=== PATIENT | male | born 1980 | race Caucasian/White ===

== ENCOUNTER 2016-08-06 11:18 | Inpatient (IN) | payer OTHER ==
[2016-08-06 12:09] VITALS: BMI 24.0
--- NOTE | 2016-08-06 13:12 | HP ---
COWS - Scale Resting Pulse: 0= [place] 80 or Below Sweatin=Flushed/Facial Moisture Restless Observation: 3= Extraneous Movement Pupil Size: 2= Moderately Dilated Bone or Joint Aches: 2= Severe Diffuse Aches Runny Nose/ Eye Tearin= Runny Nose/Eyes GI Upset > 30mins: 3= Vomiting/Diarrhea Tremor Observation: 2= Slight Tremor Visible Yawning Observation: 2= >3x During Session Anxiety or Irritability: 2=Irritable/Anxious Goose Flesh Skin: 0=Smooth Skin COWS Score: 20 Admission ROS BHS - HPI Chief Complaint: I NEED HELP TO STOP USING HEROIN,COCAINE AND CANNABIS History of Present Illness: THIS 35 YEARS OLD MALE WITH HEROIN,COCAINE,MARIJUANA DEPENDENCE,ALCOHOL DEPENDENCE,WITHDRAWAL SYMPTOM,LAST DETOX 06/22 [facility] NOT COMPLETED DEPRESSION NICOTINE DEPENDENCE SYNCOPE LAST DETOX 06/22 [facility] ASTHMA NO SIGNIFICANT PERIOD OF SOBRIETY Exam Limitations: No Limitations - Ebola screening Have you traveled outside of the country in the last 21 days: No Have you been sick,other than usual withdrawal symptoms: No - Review of Systems Constitutional: Chills, Diaphoresis, Loss of Appetite, Malaise, Night Sweats, Changes in sleep, Weakness, Unintentional Wgt. Loss EENT: reports: Tearing, Nose Congestion Respiratory: reports: No Symptoms reported Cardiac: reports: Palpitations GI: reports: Diarrhea, Nausea, Vomiting, Abdominal cramping : reports: No Symptoms Reported Musculoskeletal: reports: Back Pain, Joint Pain, Muscle Pain Integumentary: reports: Dryness Neuro: reports: Headache, Tremors Endocrine: reports: No Symptoms Reported Hematology: reports: No Symptoms Reported Psychiatric: reports: Judgement Intact, Mood/Affect Appropiate, Orientated x3, Depressed Patient History - Patient Medical History Hx Anemia: No Hx Asthma: Yes (ON ALBUTEROL INHALER) Hx Chronic Obstructive Pulmonary Disease (COPD): No Hx Cancer: No Hx Cardiac Disorders: No Hx Congestive Heart Failure: No Hx Hypertension: No Hx Hypercholesterolemia: No Hx Pacemaker: No HX Cerebrovascular Accident: No Hx Seizures: No Hx Dementia: No Hx Diabetes: No Hx Gastrointestinal Disorders: No Hx Liver Disease: No Hx Genitourinary Disorders: No Hx Sexually Transmitted Disorders: No Hx Thyroid Disease: No Hx Human Immunodeficiency Virus (HIV): No (LAST 2015) Hx Hepatitis C: No Hx Depression: Yes (NO MED) Hx Suicide Attempt: No Hx Bipolar Disorder: No Hx Schizophrenia: No Other Medical History: NO SUICIDAL,NO HOMICIDAL - Patient Surgical History Past Surgical History: Yes Other Surgical History: REPAIR OF EXTENSOR TENDONS OF RIGHT HAND IN 2006 - PPD History Previous Implant?: Yes Documented Results: Negative w/o proof Implanted On Prior [facility] Admission?: No PPD to be Administered?: Yes - Smoking Cessation Smoking history: Current every day smoker Have you smoked in the past 12 months: Yes Aproximately how many cigarettes per day: 20 Cigars Per Day: 0 Hx Chewing Tobacco Use: No Initiated information on smoking cessation: Yes 'Breaking Loose' booklet given: 08/06/16 - Substance & Tx. History Hx Alcohol Use: Yes Hx Substance Use: Yes Substance Use Type: Alcohol, Cocaine, Heroin, Marijuana Hx Substance Use Treatment: Yes ([facility] 06/22) Family Disease History - Family Disease History Family History: Denies Admission Physical Exam BHS - Vital Signs Vital Signs: Vital Signs - 24 hr 08/06/16 12:02 Temperature 98 F Pulse Rate 58 L Respiratory 20 Rate Blood Pressure 123/65 - Physical General Appearance: Yes: Moderate Distress, Tremorous, Irritable, Sweating, Anxious HEENTM: Yes: Normal ENT Inspection, Normocephalic, Nasal Congestion, Rhinorrhea Respiratory: Yes: Within Normal Limits, Lungs Clear Neck: Yes: Within Normal Limits, Supple, Trachea in good position Breast: Yes: Within Normal Limits Cardiology: Yes: Within Normal Limits, Regular Rhythm, Regular Rate, S1, S2 Abdominal: Yes: Within Normal Limits, Normal Bowel Sounds, Non Tender, Soft Genitourinary: Yes: Within Normal Limits Back: Yes: Muscle Spasm Musculoskeletal: Yes: Back pain, Muscle Pain Extremities: Yes: Tremors 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 NML intact, Fully Oriented, Alert, Motor Strength 5/5 Integumentary: Yes: Dry Lymphatic: Yes: Within Normal Limits - Diagnostic (1) Opioid dependence with withdrawal Current Visit: Yes Status: Acute (2) Cocaine dependence Current Visit: Yes Status: Acute (3) Cannabis dependence Current Visit: Yes Status: Acute (4) Alcohol dependence Current Visit: Yes Status: Acute (5) Nicotine dependence Current Visit: Yes Status: Acute (6) Syncope Current Visit: Yes Status: Acute (7) Weight loss Current Visit: Yes Status: Acute (8) Asthma Current Visit: Yes Status: Acute (9) Low back pain Current Visit: Yes Status: Acute Cleared for Admission [facility] - Detox or Rehab [facility] Level of Care: Medically Managed Detox Regimen/Protocol: Librium [facility] Breath Alcohol Content Breath Alcohol Content: 0 Urine Drug Screen - Results Drug Screen Negative: No Urine Drug Screen Results: THC-Marijuana, DIOGENES-Cocaine, OPI-Opiates, MTD- Methadone
[2016-08-06] MEDS ORDERED: MENTHOL/PHENOL 1 EACH UD MM PRN (13:34)
[2016-08-06] MEDS ORDERED: MAG HYDROX/AL HYDROX/SIMETH 30 ML UNIT-DOSE CUP PO PRN (13:34)
[2016-08-06] MEDS ORDERED: MAGNESIUM HYDROX 2400MG/30ML ORAL SUSPENSION 30 ML CUP PO PRN (13:34)
[2016-08-06] MEDS ORDERED: IBUPROFEN 400 MG TABLET (FP) PO PRN (13:34)
[2016-08-06] MEDS ORDERED: hydrOXYzine PAMOATE 50 MG CAPSULE (FP) PO PRN (13:34)
[2016-08-06] MEDS ORDERED: P-EPHED 60MG/TRIPROLIDI 2.5MG TABLET PO PRN (13:34)
[2016-08-06] MEDS ORDERED: LOPERAMIDE HCL 2 MG CAPSULE PO PRN (13:34)
[2016-08-06] MEDS ORDERED: ACETAMINOPHEN 325 MG TABLET (FP) PO PRN (13:34)
[2016-08-06] MEDS ORDERED: guaiFENesin/D-METHORPHAN HB 10 ML UNIT-DOSE CUPS PO PRN (13:34)
[2016-08-06] MEDS ORDERED: diphenhydrAMINE HCL 50 MG CAPSULE PO PRN (13:34)
[2016-08-06] MEDS ORDERED: MAGNESIUM CITRATE 300 ML BOTTLE PO PRN (13:34)
[2016-08-06] MEDS ORDERED: chlordiazePOXIDE HCL 25 MG CAPSULE PO PRN (13:34)
[2016-08-06] MEDS ORDERED: chlordiazePOXIDE HCL 25 MG CAPSULE PO ONE (13:55)
[2016-08-06] MEDS ORDERED: ALBUTEROL SO4 6.7 GM HFA INHALER IH PRN (14:37)
[2016-08-06] MEDS ORDERED: METHADONE HCL 10 MG TABLET (FOR DETOX USE ONLY) PO ONE ×2 (14:43→23:00)
[2016-08-06] MEDS: diazePAM 5 MG TABLET PO PRN ×2 (14:57→22:27)
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
[2016-08-06] MEDS ORDERED: chlordiazePOXIDE HCL 25 MG CAPSULE PO SCH (17:00)
[2016-08-06 21:42] LABS: URINE APPEARANCE CLEAR; URINE BILIRUBIN NEGATIVE (NEGATIVE); URINE COLOR YELLOW; URINE GLUCOSE (UA) NEGATIVE (NEGATIVE); URINE KETONE NEGATIVE (NEGATIVE); URINE NITRITE NEGATIVE (NEGATIVE); URINE PROTEIN NEGATIVE (NEGATIVE); URINE UROBILINOGEN NEGATIVE E.U./dl (0.2-1.0)
[2016-08-06 21:45] LABS: URINE BLOOD 2+ (NEGATIVE); URINE LEUK ESTERASE TRACE (NEGATIVE)
[2016-08-06 21:49] LABS: URINE BACTERIA RARE /hpf (NONE SEEN); URINE MUCUS MANY; URINE RBC 29 /hpf (0-3); URINE WBC 1 /hpf (3-5)
[2016-08-06] MEDS: cloNIDine HCL 0.1 MG TABLET PO SCH (22:26)
[2016-08-06] MEDS: THIAMINE HCL 100 MG TABLET (FP) PO SCH (22:27)
[2016-08-06] MEDS: ZOLPIDEM TARTRATE 10 MG TABLET (PARK CARE ONLY) PO PRN (22:27)
[2016-08-07] MEDS: CYCLOBENZAPRINE HCL 10 MG TABLET (FP) PO PRN (05:41)
[2016-08-07] MEDS: diazePAM 5 MG TABLET PO PRN ×2 (05:41→22:45)
[2016-08-07] MEDS ORDERED: METHADONE HCL 10 MG TABLET (FOR DETOX USE ONLY) PO ONE (10:00)
--- NOTE | 2016-08-07 10:38 | PN ---
[facility] CIWA - CIWA Score Nausea/Vomitin-Mild Nausea/No Vomiting Muscle Tremors: 4-Moderate,w/Arms Extend Anxiety: 4-Mod. Anxious/Guarded Agitation: 3 Paroxysmal Sweats: 3 Orientation: 0-Oriented Tacttile Disturbances: 0-None Auditory Disturbances: 0-None Visual Disturbances: 0-None Headache: 0-None Present CIWA-Ar Total Score: 15 BHS COWS - Scale Resting Pulse: 0= [place] 80 or Below Sweatin=Flushed/Facial Moisture Restless Observation: 1= Difficult to Sit Still Pupil Size: 0= Normal to Room Light Bone or Joint Aches: 1= Mild Discomfort Runny Nose/ Eye Tearin= Runny Nose/Eyes GI Upset > 30mins: 2= Nausea/Diarrhea Tremor Observation of Outstretched Hands: 2= Slight Tremor Visible Yawning Observation: 1= 1-2x During Session Anxiety or Irritability: 2=Irritable/Anxious Goose Flesh Skin: 0=Smooth Skin COWS Score: 13 [facility] Progress Note (SOAP) Subjective: nausea,anxiety,tremors,sweating,interrupted sleep,restless Objective: 08/07/16 10:37 Vital Signs - 8 hr 08/07/16 08/07/16 03:30 06:46 Temperature 97.7 F Pulse Rate 55 L Respiratory 18 16 Rate Blood Pressure 107/69 Laboratory Tests 08/06/16 08/06/16 14:00 20:00 Urine Color Yellow Urine Appearance Clear Urine pH 5.0 Ur Specific [place] 1.029 Urine Protein Negative Urine Glucose (UA) Negative Urine Ketones Negative Urine Blood 2+ H Urine Nitrite Negative Urine Bilirubin Negative Urine Urobilinogen Negative Ur Leukocyte Esterase Trace H Urine RBC 29 Urine WBC 1 Urine Bacteria Rare Urine Mucus Many Hepatitis C Antibody 0.1 labs noted Assessment: 08/07/16 10:37 Withdrawal sx. Plan: Continue detox
[2016-08-07] MEDS: cloNIDine HCL 0.1 MG TABLET PO SCH ×2 (10:57→22:46)
[2016-08-07] MEDS: PRENATAL VITAMINS W/ FOLIC ACID TABLET (FP) PO SCH (10:57)
[2016-08-07 11:19] LABS: MCHC 33.8 g/dl (32.0-35.9); MEAN CELL VOLUME 94.9 fl (80-96); PLATELET COUNT 286 K/MM3 (134-434); RDW 13.6 % (11.9-15.9); WHITE BLOOD COUNT 7.2 K/mm3 (4.0-10.0)
[2016-08-07 11:25] LABS: ALBUMIN 3.8 g/dl (3.4-5.0); ANION GAP 10 (8-16); CALCIUM 8.4 mg/dL (8.5-10.1); CO2 31 mmol/L (21-32); GLUCOSE,RANDOM 58 mg/dL (74-106); SGOT/AST 12 U/L (15-37); SGPT/ALT 17 U/L (12-78)
[2016-08-07 11:27] LABS: ALK PHOS 72 U/L (45-117); BILIRUBIN,TOTAL 0.1 mg/dL (0.2-1.0); CREATININE 0.9 mg/dL (0.7-1.3)
[2016-08-07 14:12] LABS: HIV 1 & 2 AB NEGATIVE; HIV 1 AGp24 NEGATIVE
[2016-08-07] MEDS ORDERED: chlordiazePOXIDE HCL 25 MG CAPSULE PO SCH (17:00)
[2016-08-07] MEDS: NICOTINE POLACRILEX 2 MG GUM BUC PRN (21:41)
[2016-08-07] MEDS: ZOLPIDEM TARTRATE 10 MG TABLET (PARK CARE ONLY) PO PRN (22:45)
[2016-08-07] MEDS: THIAMINE HCL 100 MG TABLET (FP) PO SCH (22:46)
[2016-08-08] MEDS: diazePAM 5 MG TABLET PO PRN (05:51)
[2016-08-08] MEDS: CYCLOBENZAPRINE HCL 10 MG TABLET (FP) PO PRN (05:51)
[2016-08-08] MEDS ORDERED: METHADONE HCL 5 MG TABLET (FOR DETOX USE ONLY) PO ONE (10:00)
[2016-08-08] MEDS: PRENATAL VITAMINS W/ FOLIC ACID TABLET (FP) PO SCH (10:27)
[2016-08-08] MEDS: cloNIDine HCL 0.1 MG TABLET PO SCH (10:28)
[2016-08-08] MEDS: NICOTINE POLACRILEX 2 MG GUM BUC PRN (10:30)
[2016-08-08 10:31] VITALS: BP 97/59; PULSE 71; TEMP 98.2
--- NOTE | 2016-08-08 16:21 | PN ---
BHS COWS - Scale Resting Pulse: 0= [place] 80 or Below Sweatin= Chills/Flushing Restless Observation: 3= Extraneous Movement Pupil Size: 0= Normal to Room Light Bone or Joint Aches: 2= Severe Diffuse Aches Runny Nose/ Eye Tearin= Runny Nose/Eyes GI Upset > 30mins: 2= Nausea/Diarrhea Tremor Observation of Outstretched Hands: 2= Slight Tremor Visible Yawning Observation: 0= None Anxiety or Irritability: 2=Irritable/Anxious Goose Flesh Skin: 0=Smooth Skin COWS Score: 14 BHS Progress Note (SOAP) Subjective: Nausea, sweating, tremor, body aches Objective: 08/08/16 16:18 Last Vital Signs Temp Pulse Resp BP Pulse Ox 98.2 F 71 18 97/59 08/08/16 10:30 08/08/16 10:30 08/08/16 10:30 08/08/16 10:30 Laboratory Tests 08/06/16 08/06/16 08/06/16 14:00 14:00 20:00 WBC RBC Hgb Hct MCV MCHC RDW Plt Count MPV Sodium Potassium Chloride Carbon Dioxide Anion Gap BUN Creatinine Creat Clearance w eGFR Random Glucose Calcium Total Bilirubin AST ALT Alkaline Phosphatase Total Protein Albumin Urine Color Yellow Urine Appearance Clear Urine pH 5.0 Ur Specific [place] 1.029 Urine Protein Negative Urine Glucose (UA) Negative Urine Ketones Negative Urine Blood 2+ H Urine Nitrite Negative Urine Bilirubin Negative Urine Urobilinogen Negative Ur Leukocyte Esterase Trace H Urine RBC 29 Urine WBC 1 Urine Bacteria Rare Urine Mucus Many RPR Titer Hepatitis C Antibody 0.1 HIV 1&2 Antibody Screen Negative HIV P24 Antigen Negative 08/07/16 08/07/16 08/07/16 06:15 06:15 06:15 WBC 7.2 RBC 4.00 Hgb 12.8 Hct 38.0 MCV 94.9 MCHC 33.8 RDW 13.6 Plt Count 286 MPV 8.0 Sodium 142 Potassium 3.8 Chloride 101 Carbon Dioxide 31 Anion Gap 10 BUN 12 Creatinine 0.9 Creat Clearance w eGFR > 60 Random Glucose 58 L Calcium 8.4 L Total Bilirubin 0.1 L AST 12 L ALT 17 Alkaline Phosphatase 72 Total Protein 7.0 Albumin 3.8 Urine Color Urine Appearance Urine pH Ur Specific [place] Urine Protein Urine Glucose (UA) Urine Ketones Urine Blood Urine Nitrite Urine Bilirubin Urine Urobilinogen Ur Leukocyte Esterase Urine RBC Urine WBC Urine Bacteria Urine Mucus RPR Titer Nonreactive Hepatitis C Antibody HIV 1&2 Antibody Screen HIV P24 Antigen Labs noted: UA: 2+ blood, RBC 29 Assessment: 08/08/16 16:20 Withdrawal symptoms Noted with microscopic hematuria Plan: Continue detox Microscopic hematuria: encouraged to drink lots of water, repeat UA
[2016-08-08] MEDS ORDERED: chlordiazePOXIDE 5 MG CAPSULE PO SCH (17:00)
[2016-08-09] MEDS ORDERED: METHADONE HCL 5 MG TABLET (FOR DETOX USE ONLY) PO ONE (10:00)
--- NOTE | 2016-08-09 11:33 | EKG ---
Test Reason : Blood Pressure : / mmHG Vent. Rate : 059 BPM Atrial Rate : 059 BPM P-R Int : 144 ms QRS Dur : 094 ms QT Int : 420 ms P-R-T Axes : 038 036 030 degrees QTc Int : 415 ms SINUS BRADYCARDIA OTHERWISE NORMAL ECG NO PREVIOUS ECGS AVAILABLE Confirmed by KELLEY ESTRADA MD ([id number]) on 08/09/2016 11:32:37 AM Referred By: Ahsan Otero Confirmed By:KELLEY ESTRADA MD
[2016-08-09] MEDS ORDERED: chlordiazePOXIDE HCL 10 MG CAPSULE PO SCH (17:00)
[2016-08-10] MEDS ORDERED: METHADONE HCL 10 MG TABLET (FOR DETOX USE ONLY) PO ONE (10:00)
[2016-08-11] MEDS ORDERED: METHADONE HCL 5 MG TABLET (FOR DETOX USE ONLY) PO ONE (06:00)
--- NOTE | 2016-08-14 16:37 | DS ---
[facility] Detox Discharge Summary Admission Date: 08/06/16 Discharge Date: 08/08/16 - History Present History: Cannabis Dependence, Cocaine Dependence, Opioid Dependence Pertinent Past History: Asthma - Physical Exam Results Vital Signs: Vital Signs Temperature 98.2 F 08/08/16 10:30 Pulse Rate 71 08/08/16 10:30 Respiratory Rate 18 08/08/16 10:30 Blood Pressure 97/59 08/08/16 10:30 O2 Sat by Pulse Oximetry (%) Pertinent Admission Physical Exam Findings: Withdrawal sx. Laboratory Last Values WBC 7.2 K/mm3 (4.0-10.0) 08/07/16 06:15 RBC 4.00 M/mm3 (4.00-5.60) 08/07/16 06:15 Hgb 12.8 GM/dL (11.7-16.9) 08/07/16 06:15 Hct 38.0 % (35.4-49) 08/07/16 06:15 MCV 94.9 fl (80-96) 08/07/16 06:15 MCHC 33.8 g/dl (32.0-35.9) 08/07/16 06:15 RDW 13.6 % (11.9-15.9) 08/07/16 06:15 Plt Count 286 K/MM3 (134-434) 08/07/16 06:15 MPV 8.0 fl (7.5-11.1) 08/07/16 06:15 Sodium 142 mmol/L (136-145) 08/07/16 06:15 Potassium 3.8 mmol/L (3.5-5.1) 08/07/16 06:15 Chloride 101 mmol/L (98-107) 08/07/16 06:15 Carbon Dioxide 31 mmol/L (21-32) 08/07/16 06:15 Anion Gap 10 (8-16) 08/07/16 06:15 BUN 12 mg/dL (7-18) 08/07/16 06:15 Creatinine 0.9 mg/dL (0.7-1.3) 08/07/16 06:15 Creat Clearance w eGFR > 60 (>60) 08/07/16 06:15 Random Glucose 58 mg/dL (74-106) L 08/07/16 06:15 Calcium 8.4 mg/dL (8.5-10.1) L 08/07/16 06:15 Total Bilirubin 0.1 mg/dL (0.2-1.0) L 08/07/16 06:15 AST 12 U/L (15-37) L 08/07/16 06:15 ALT 17 U/L (12-78) 08/07/16 06:15 Alkaline Phosphatase 72 U/L (45-117) 08/07/16 06:15 Total Protein 7.0 g/dl (6.4-8.2) 08/07/16 06:15 Albumin 3.8 g/dl (3.4-5.0) 08/07/16 06:15 Urine Color Yellow 08/06/16 20:00 Urine Appearance Clear 08/06/16 20:00 Urine pH 5.0 (5.0-8.0) 08/06/16 20:00 Ur Specific [place] 1.029 (1.001-1.035) 08/06/16 20:00 Urine Protein Negative (NEGATIVE) 08/06/16 20:00 Urine Glucose (UA) Negative (NEGATIVE) 08/06/16 20:00 Urine Ketones Negative (NEGATIVE) 08/06/16 20:00 Urine Blood 2+ (NEGATIVE) H 08/06/16 20:00 Urine Nitrite Negative (NEGATIVE) 08/06/16 20:00 Urine Bilirubin Negative (NEGATIVE) 08/06/16 20:00 Urine Urobilinogen Negative E.U./dl (0.2-1.0) 08/06/16 20:00 Ur Leukocyte Esterase Trace (NEGATIVE) H 08/06/16 20:00 Urine RBC 29 /hpf (0-3) 08/06/16 20:00 Urine WBC 1 /hpf (3-5) 08/06/16 20:00 Urine Bacteria Rare /hpf (NONE SEEN) 08/06/16 20:00 Urine Mucus Many 08/06/16 20:00 RPR Titer Nonreactive (NONREACTIVE) 08/07/16 06:15 Hepatitis C Antibody 0.1 s/co ratio (0.0-0.9) 08/06/16 14:00 HIV 1&2 Antibody Screen Negative 08/06/16 14:00 HIV P24 Antigen Negative 08/06/16 14:00 labs noted - Treatment Patient has Accepted a Rehab Referral to: [facility] - Medication Discharge Medications: Ambulatory Orders Albuterol Sulfate Inhaler - [Ventolin HFA Inhaler -] 2 inh PO Q4H PRN 08/06/16 - Diagnosis (1) Nicotine dependence Status: Acute Qualifiers: Nicotine product type: cigarettes Substance use status: uncomplicated Qualified Code(s): F17.210 - Nicotine dependence, cigarettes, uncomplicated (2) Opioid dependence with withdrawal Status: Acute (3) Substance induced mood disorder Status: Acute - AMA Did Patient Leave Against Medical Advice: Yes
== END 2016-08-08 12:04 | disposition left against medical advice (07) | DRG 773 ==
LOC: YASAS 11:18 → Y3N 13:53
PROVIDERS: ADMIT Internal Medicine; ATTEND Internal Medicine
PROC: HZ2ZZZZ Detoxification Services for Substance Abuse Treatment (ICD-10-PCS; principal; 2016-08-08)
DX: F11.23 Opioid dependence with withdrawal (principal); F10.230 Alcohol dependence with withdrawal, uncomplicated; F14.20 Cocaine dependence, uncomplicated; F12.20 Cannabis dependence, uncomplicated; F17.210 Nicotine dependence, cigarettes, uncomplicated; F19.24 Other psychoactive substance dependence with psychoactive substance-induced mood disorder; G47.00 Insomnia, unspecified; J45.909 Unspecified asthma, uncomplicated; M54.5 Low back pain; R63.4 Abnormal weight loss
CPT/HCPCS: 36415; 80053; 81003; 81015; 85027; 86593; 87389; 93005; 93010

== ENCOUNTER 2022-09-08 12:30 | Inpatient (IN) | payer OTHER ==
[2022-09-08 12:56] VITALS: BMI 21.9
[2022-09-08] MEDS ORDERED: IBUPROFEN 600 MG TABLET (FP) PO PRN (13:22)
[2022-09-08] MEDS ORDERED: MAG HYDROX/AL HYDROX/SIMETH 30 ML UNIT-DOSE CUP PO PRN (13:22)
[2022-09-08] MEDS ORDERED: ACETAMINOPHEN 325 MG TABLET (FP) PO PRN (13:22)
[2022-09-08] MEDS ORDERED: NALOXONE HCL (KLOXXADO) 8 MG SPRAY NS PRN (13:22)
[2022-09-08] MEDS ORDERED: MAGNESIUM HYDROX 2400MG/30ML ORAL SUSPENSION 30 ML CUP PO PRN (13:22)
[2022-09-08] MEDS ORDERED: TUBERCULIN PPD 5 TU/0.1ML SYRINGE (IN PATIENT USE ONLY) ID ONE (13:22)
[2022-09-08] MEDS ORDERED: POLYETHYLENE GLYCOL (HEALTHYLAX) 3350 17 GM PACKET PO PRN (13:22)
[2022-09-08] MEDS ORDERED: BENZONATATE 200 MG CAPSULE PO PRN (13:22)
[2022-09-08] MEDS ORDERED: NICOTINE 10 MG CARTRIDGE (INHALER) IH PRN (13:22)
[2022-09-08] MEDS ORDERED: BENZOCAINE/MENTHOL (CHLORASEPTIC ) LOZENGE MM PRN (13:22)
[2022-09-08] MEDS ORDERED: LOPERAMIDE HCL 2 MG CAPSULE PO PRN (13:22)
[2022-09-08] MEDS ORDERED: IBUPROFEN 400 MG TABLET (FP) PO PRN (13:22)
[2022-09-08] MEDS ORDERED: guaiFENesin 600 MG TABLET.ER (FP) PO PRN (13:22)
[2022-09-08] MEDS ORDERED: NALOXONE HCL 0.4 MG/ML VIAL IM PRN (13:22)
[2022-09-08] MEDS ORDERED: hydrOXYzine PAMOATE 25 MG CAPSULE (FP) PO PRN (13:22)
[2022-09-08 17:04] VITALS: RESP 18
[2022-09-08] MEDS ORDERED: TUBERCULIN PPD 5 TU/0.1ML VIAL ID ONE (17:12)
[2022-09-08 17:17] LABS: CALCIUM 8.4 mg/dL (8.5-10.1)
[2022-09-08] MEDS: PRENATAL VITAMINS W/ FOLIC ACID TABLET (FP) PO SCH (17:17)
[2022-09-08] MEDS: NICOTINE 14 MG/24 HOURS TOPICAL PATCH TD SCH (17:17)
[2022-09-08 17:18] LABS: ALBUMIN 3.2 g/dl (3.4-5.0); BLOOD UREA NITROGEN 13.3 mg/dL (7-18)
[2022-09-08 17:20] LABS: HEMOGLOBIN 10.9 GM/dL (11.7-16.9); MCH 31.2 pg (25.7-33.7); MCHC 34.2 g/dl (32.0-35.9); MEAN PLT VOLUME 7.2 fl (7.5-11.1); PLATELET COUNT 325 10^3/uL (134-434); RBC 3.51 M/mm3 (4.00-5.60); RDW 14.1 % (11.9-15.9); WHITE BLOOD COUNT 10.5 K/mm3 (4.0-10.0)
[2022-09-08 17:21] LABS: CREATININE 1.1 mg/dL (0.55-1.3)
[2022-09-08 17:23] LABS: BILIRUBIN,TOTAL 0.2 mg/dL (0.2-1); TOT PROT 6.4 g/dl (6.4-8.2)
[2022-09-08 18:15] LABS: SYPHILIS W/ RPR CONF NON-REACTIVE (NONREACTIVE)
[2022-09-08] MEDS: MELATONIN 5 MG TABLETS PO SCH (21:37)
[2022-09-08] MEDS: THIAMINE HCL 100 MG TABLET (FP) PO SCH (21:37)
[2022-09-09] MEDS ORDERED: methaDONE HCL 10 MG TABLET PO SCH (07:50)
[2022-09-09] MEDS ORDERED: methaDONE 40 MG, methaDONE 30 MG PO ONE (08:15)
[2022-09-09] MEDS: NICOTINE 14 MG/24 HOURS TOPICAL PATCH TD SCH (10:11)
[2022-09-09] MEDS: PRENATAL VITAMINS W/ FOLIC ACID TABLET (FP) PO SCH (10:11)
[2022-09-09] MEDS ORDERED: ARIPiprazole 10 MG TABLET PO ONE (12:58)
[2022-09-09 13:13] LABS: EPI CELLS 1 /uL (0-25.1); HYALINE CASTS 0 /uL (0-3.1); PH,URINE 7.5 (5.0-8.0); URINE APPEARANCE CLEAR; URINE BACTERIA 0 /uL (0-1359); URINE BILIRUBIN NEGATIVE (NEGATIVE); URINE COLOR YELLOW; URINE GLUCOSE (UA) NEGATIVE (NEGATIVE); URINE KETONE NEGATIVE (NEGATIVE); URINE LEUK ESTERASE NEGATIVE (NEGATIVE); URINE NITRITE NEGATIVE (NEGATIVE); URINE PROTEIN NEGATIVE (NEGATIVE); URINE RBC 38 /uL (0-23.9); URINE UROBILINOGEN 0.2 mg/dL (0.2-1.0); URINE WBC 1 /uL (0-25.8)
[2022-09-09] MEDS: MELATONIN 5 MG TABLETS PO SCH (21:23)
[2022-09-09] MEDS: THIAMINE HCL 100 MG TABLET (FP) PO SCH (21:23)
[2022-09-09] MEDS ORDERED: MIRTAZAPINE 30 MG TABLET PO SCH (22:00)
[2022-09-10] MEDS ORDERED: methaDONE 40 MG, methaDONE 30 MG PO SCH (06:00)
[2022-09-10 07:26] VITALS: BP 127/86; PULSE 76; TEMP 96.8
[2022-09-10] MEDS ORDERED: ARIPiprazole 10 MG TABLET PO SCH (10:00)
[2022-09-10] MEDS: PRENATAL VITAMINS W/ FOLIC ACID TABLET (FP) PO SCH (10:37)
[2022-09-10] MEDS: NICOTINE 14 MG/24 HOURS TOPICAL PATCH TD SCH (10:38)
== END 2022-09-10 13:08 | disposition home or self-care (01) | DRG 772 ==
LOC: YASAS 12:30 → Y3W 15:36
PROVIDERS: ADMIT Allergy & Immunology; ATTEND Psychiatry & Neurology Pain Medicine
PROC: HZ42ZZZ Group Counseling for Substance Abuse Treatment, Cognitive-Behavioral (ICD-10-PCS; principal; 2022-09-08)
DX: F11.20 Opioid dependence, uncomplicated (principal); F14.20 Cocaine dependence, uncomplicated; F17.210 Nicotine dependence, cigarettes, uncomplicated; F31.9 Bipolar disorder, unspecified; F19.24 Other psychoactive substance dependence with psychoactive substance-induced mood disorder; J45.909 Unspecified asthma, uncomplicated; M54.50 Low back pain, unspecified; Z56.0 Unemployment, unspecified; Z59.02 Unsheltered homelessness
CPT/HCPCS: 36415; 80053; 81003; 85027; 86780; 86803; 87522; C9803-CS; U0003; U0005

== ENCOUNTER 2023-11-22 13:09 | Inpatient (IN) | payer OTHER ==
[2023-11-22] MEDS ORDERED: hydrOXYzine PAMOATE 25 MG CAPSULE (FP) PO PRN (15:37)
[2023-11-22] MEDS ORDERED: ONDANSETRON *ODT* 4 MG TABLET SL PRN (15:37)
[2023-11-22] MEDS ORDERED: guaiFENesin 600 MG TABLET.ER (FP) PO PRN (15:37)
[2023-11-22] MEDS ORDERED: IBUPROFEN 400 MG TABLET (FP) PO PRN (15:37)
[2023-11-22] MEDS ORDERED: BISMUTH SUBSALICYLATE 524 MG/30 ML PO PRN (15:37)
[2023-11-22] MEDS ORDERED: METHOCARBAMOL 500 MG TABLET PO PRN (15:37)
[2023-11-22] MEDS ORDERED: IBUPROFEN 600 MG TABLET (FP) PO PRN (15:37)
[2023-11-22] MEDS ORDERED: MAG HYDROX/AL HYDROX/SIMETH 30 ML UNIT-DOSE CUP PO PRN (15:37)
[2023-11-22] MEDS ORDERED: ACETAMINOPHEN 325 MG TABLET (FP) PO PRN (15:37)
[2023-11-22] MEDS ORDERED: NALOXONE (NARCAN) HCL 4 MG/0.1 ML SPRAY NS PRN (15:37)
[2023-11-22] MEDS ORDERED: MAGNESIUM HYDROX 2400MG/30ML ORAL SUSPENSION 30 ML CUP PO PRN (15:37)
[2023-11-22] MEDS ORDERED: BENZONATATE 200 MG CAPSULE PO PRN (15:37)
[2023-11-22] MEDS ORDERED: DICYCLOMINE HCL 10 MG CAPSULE PO PRN (15:37)
[2023-11-22] MEDS ORDERED: NALOXONE HCL 0.4 MG/ML VIAL IM PRN (15:37)
[2023-11-22] MEDS ORDERED: POLYETHYLENE GLYCOL (HEALTHYLAX) 3350 17 GM PACKET PO PRN (15:37)
[2023-11-22] MEDS ORDERED: LOPERAMIDE HCL 2 MG CAPSULE PO PRN (15:37)
[2023-11-22] MEDS ORDERED: BENZOCAINE/MENTHOL (CHLORASEPTIC ) LOZENGE MM PRN (15:37)
[2023-11-22] MEDS ORDERED: ALBUTEROL SO4 HFA INHALER IH PRN (15:40)
[2023-11-22 15:43] VITALS: BMI 23.5
[2023-11-22] MEDS: PRENATAL VITAMINS W/ FOLIC ACID TABLET (FP) PO SCH (20:20)
[2023-11-22] MEDS: THIAMINE 100 MG TABLET PO SCH (22:15)
[2023-11-22] MEDS: MELATONIN 5 MG TABLETS PO SCH (22:50)
[2023-11-23] MEDS ORDERED: methaDONE HCL 10 MG TABLET PO ONE (10:08)
[2023-11-23] MEDS: NICOTINE 14 MG/24 HOURS TOPICAL PATCH TD SCH (10:17)
[2023-11-23] MEDS: methaDONE 40 MG, methaDONE 30 MG PO ONE (10:49)
[2023-11-23] MEDS: ARIPiprazole 10 MG TABLET PO SCH (10:50)
[2023-11-23 12:55] LABS: HEMATOCRIT 39.6 % (35.4-49); HEMOGLOBIN 13.2 GM/dL (11.7-16.9); MCH 30.5 pg (25.7-33.7); MCHC 33.3 g/dl (32.0-35.9); MEAN CELL VOLUME 91.7 fl (80-96); MEAN PLT VOLUME 7.6 fl (7.5-11.1); PLATELET COUNT 281 10^3/uL (134-434); RBC 4.32 M/mm3 (4.00-5.60); RDW 14.7 % (11.9-15.9); WHITE BLOOD COUNT 7.4 K/mm3 (4.0-10.0)
[2023-11-23 13:25] LABS: POTASSIUM 4.6 mmol/L (3.5-5.1)
[2023-11-23 13:26] LABS: CALCIUM 8.7 mg/dL (8.5-10.1)
[2023-11-23 13:28] LABS: ALBUMIN 3.5 g/dl (3.4-5.0); BLOOD UREA NITROGEN 18.4 mg/dL (7-18)
[2023-11-23 13:31] LABS: CREATININE 1.1 mg/dL (0.55-1.3)
[2023-11-23 13:32] LABS: BILIRUBIN,TOTAL 0.2 mg/dL (0.2-1); TOT PROT 7.1 g/dl (6.4-8.2)
[2023-11-24] MEDS ORDERED: methaDONE HCL 10 MG TABLET PO ONE (10:00)
[2023-11-25] MEDS: methaDONE HCL 40 MG DISPERSABLE TABLET PO ONE (09:35)
[2023-11-26] MEDS ORDERED: methaDONE HCL 10 MG TABLET PO ONE (10:00)
[2023-11-27 09:05] VITALS: BP 102/70; PULSE 60; RESP 18; TEMP 97.4
[2023-11-27] MEDS: methaDONE 80 MG, methaDONE 10 MG PO ONE (10:24)
== END 2023-11-27 12:43 | disposition other institution (70) | DRG 773 ==
LOC: YASAS 13:09 → Y3NR 18:32 → Y6N 18:36
PROVIDERS: ADMIT Allergy & Immunology; ATTEND Surgery
PROC: HZ2ZZZZ Detoxification Services for Substance Abuse Treatment (ICD-10-PCS; principal; 2023-11-23)
DX: F11.23 Opioid dependence with withdrawal (principal); F14.20 Cocaine dependence, uncomplicated; F17.210 Nicotine dependence, cigarettes, uncomplicated; F31.9 Bipolar disorder, unspecified; F20.9 Schizophrenia, unspecified; F19.24 Other psychoactive substance dependence with psychoactive substance-induced mood disorder; F43.10 Post-traumatic stress disorder, unspecified; J45.20 Mild intermittent asthma, uncomplicated; Z62.810 Personal history of physical and sexual abuse in childhood; Z63.8 Other specified problems related to primary support group
CPT/HCPCS: 36415; 80053; 80305; 85027; 86780; 87811; 93005; 93010

== ENCOUNTER 2023-11-27 13:02 | Inpatient (IN) | payer OTHER ==
[~2023-11-27 13:02] MED LIST: ACETAMINOPHEN 325 MG TABLET (FP) PO PRN; BENZOCAINE/MENTHOL (CHLORASEPTIC ) LOZENGE MM PRN; BENZONATATE 200 MG CAPSULE PO PRN; IBUPROFEN 400 MG TABLET (FP) PO PRN; IBUPROFEN 600 MG TABLET (FP) PO PRN; LOPERAMIDE HCL 2 MG CAPSULE PO PRN; MAG HYDROX/AL HYDROX/SIMETH 30 ML UNIT-DOSE CUP PO PRN; MAGNESIUM HYDROX 2400MG/30ML ORAL SUSPENSION 30 ML CUP PO PRN; NALOXONE (NARCAN) HCL 4 MG/0.1 ML SPRAY NS PRN; NALOXONE HCL 0.4 MG/ML VIAL IM PRN; NICOTINE POLACRILEX 2 MG LOZENGE BC PRN; POLYETHYLENE GLYCOL (HEALTHYLAX) 3350 17 GM PACKET PO PRN; guaiFENesin 600 MG TABLET.ER (FP) PO PRN; hydrOXYzine PAMOATE 25 MG CAPSULE (FP) PO PRN
[2023-11-27] MEDS: NICOTINE POLACRILEX 2 MG GUM BUC PRN (18:00)
[2023-11-27] MEDS: THIAMINE 100 MG TABLET PO SCH (21:11)
[2023-11-27] MEDS: MELATONIN 5 MG TABLETS PO SCH (21:11)
[2023-11-28] MEDS: NICOTINE 14 MG/24 HOURS TOPICAL PATCH TD SCH (05:31)
[2023-11-28] MEDS: methaDONE 80 MG, methaDONE 10 MG PO SCH (05:31)
[2023-11-28] MEDS: ARIPiprazole 10 MG TABLET PO SCH (05:33)
[2023-11-28] MEDS ORDERED: methaDONE HCL 10 MG TABLET PO SCH (06:00)
[2023-11-28] MEDS ORDERED: ARIPiprazole 10 MG TABLET PO SCH (10:00)
[2023-11-28] MEDS ORDERED: NICOTINE 14 MG/24 HOURS TOPICAL PATCH TD SCH (10:00)
[2023-11-28] MEDS: PRENATAL VITAMINS W/ FOLIC ACID TABLET (FP) PO SCH (10:21)
[2023-11-29 07:03] VITALS: RESP 16; TEMP 978
[2023-11-29 09:27] VITALS: BP 102/53; PULSE 73
[2023-11-29] MEDS: ALBUTEROL SO4 HFA INHALER IH PRN (13:49)
== END 2023-11-29 14:02 | disposition home or self-care (01) | DRG 772 ==
LOC: YASAS 13:02 → Y3NR 13:04 → Y3W 11-28 17:12
PROVIDERS: ADMIT Allergy & Immunology; ATTEND Psychiatry & Neurology Pain Medicine
PROC: HZ42ZZZ Group Counseling for Substance Abuse Treatment, Cognitive-Behavioral (ICD-10-PCS; principal; 2023-11-27)
DX: F11.20 Opioid dependence, uncomplicated (principal); F14.20 Cocaine dependence, uncomplicated; F17.210 Nicotine dependence, cigarettes, uncomplicated; F25.9 Schizoaffective disorder, unspecified; J45.909 Unspecified asthma, uncomplicated